=== PATIENT | female | born 1990 | race Two or more races ===

== ENCOUNTER → 2021-12-28 | Emergency (ER) | payer OTHER ==
[~2021-12-28] VITALS: Ht 167.6 cm; Wt 90.7 kg
[~2021-12-28] MED LIST: ALUM & MAG HYDROX-SIMETH LIQ(MAALOX) 30 ML PO ONE; FAMOTIDINE 20 MG TAB PO ONE; LIDOCAINE VISCOUS 2% 15ML UD PO ONE; ONDANSETRON ODT 4 MG TAB PO ONE
[2021-12-28 16:46] VITALS: BP 144/93
== END | disposition left against medical advice (07) ==
LOC: ER 16:28
DX: R11.2 Nausea with vomiting, unspecified (principal); Z53.21 Procedure and treatment not carried out due to patient leaving prior to being seen by health care provider
CPT/HCPCS: 80053; 81001; 81025; 83690

== ENCOUNTER 2023-07-10 06:26 | Emergency (ER) | payer OTHER ==
[~2023-07-10] VITALS: Ht 167.6 cm; Wt 84.9 kg
[2023-07-10 06:43] VITALS: BP 110/78; PULSE 91; RESP 20; O2SAT 98
== END 2023-07-10 08:14 | disposition left against medical advice (07) ==
LOC: ER 06:26
DX: R10.10 Upper abdominal pain, unspecified (principal); R11.2 Nausea with vomiting, unspecified; Z53.21 Procedure and treatment not carried out due to patient leaving prior to being seen by health care provider